=== PATIENT | female | born 1950 | race Caucasian/White ===

== ENCOUNTER → 2017-10-01 | Outpatient (CLI) | payer OTHER ==
[~2017-10-01] MED LIST: ASPIRIN325; ATIVAN0.5 MG PO; BENAZEPRIL HCL20 MG PO; BENGAY GREASELE57 GM TOP; CATAPRES0.2 MG PO; CHILD MUCINEX; CORICIDIN HBP1 EACH PO; COZAAR 50 MG TA50 M2; LISINOPRIL10 MG PO; METOPROLOL SUC100 MG PO; METOPROLOL TAR100 MG PO; TOPROL XL
== END ==
LOC: RAD 03:09
DX: Z12.31 Encounter for screening mammogram for malignant neoplasm of breast (principal)

== ENCOUNTER → 2019-12-04 | Outpatient (CLI) | payer OTHER | LOC: RAD 10:59 | DX: Z12.31 Encounter for screening mammogram for malignant neoplasm of breast (principal) ==

== ENCOUNTER → 2020-03-17 | Outpatient (CLI) | payer OTHER | LOC: SJCVC 13:38 | DX: R94.31 Abnormal electrocardiogram [ECG] [EKG] (principal); R00.1 Bradycardia, unspecified; I10 Essential (primary) hypertension; E78.5 Hyperlipidemia, unspecified; Z86.73 Personal history of transient ischemic attack (TIA), and cerebral infarction without residual deficits ==

== ENCOUNTER → 2020-03-24 | Outpatient (CLI) | payer OTHER | LOC: SJCVCIMAG 13:55 | PROVIDERS: ATTEND Internal Medicine | DX: I65.23 Occlusion and stenosis of bilateral carotid arteries (principal); I07.1 Rheumatic tricuspid insufficiency; I10 Essential (primary) hypertension; E78.5 Hyperlipidemia, unspecified; Z86.73 Personal history of transient ischemic attack (TIA), and cerebral infarction without residual deficits ==

== ENCOUNTER → 2021-05-05 | Outpatient (CLI) | payer OTHER | LOC: BC 14:46 | PROVIDERS: ATTEND Nurse Practitioner Family | DX: Z12.31 Encounter for screening mammogram for malignant neoplasm of breast (principal) ==